=== PATIENT | female | born 1990 | race Caucasian/White ===

== ENCOUNTER → 2022-05-02 13:05 | Observation (INO) ==
[2022-05-02 12:50] LABS: Basophils # 0.1 K/mcL (0.0-0.2); Basophils % 0.6 %; Eosinophils # 0.2 K/mcL (0.0-0.6); Eosinophils % 1.6 %; Hemoglobin 11.6 g/dL (11.5-15.4); Immature Granulocytes % 1.7 % (0-4); Lymphocytes # 2.4 K/mcL (0.6-4.6); Lymphocytes % 17.7 %; Mean Corpuscular HGB Conc 33.1 g/dL (31.6-35.5); Mean Corpuscular Hemoglobin 30.9 pg (28.0-33.3); Mean Corpuscular Volume 93.3 fL (83.0-100.0); Mean Platelet Volume 10.6 fL (9.4-12.4); Monocytes # 0.8 K/mcL (0.0-1.3); Monocytes % 5.6 %; Platelet Count 189 K/mcL (140-400); Red Blood Count 3.75 M/mcL (3.82-4.97); Red Cell Distribution Width 12.7 % (11.5-14.5); Segmented Neutrophils % 72.8 %; White Blood Count 13.7 K/mcL (4.3-11.1)
[2022-05-02 13:04] LABS: INR 0.9; Prothrombin Time 10.1 Seconds (9.4-12.1)
[2022-05-02 13:06] LABS: Activated Partial Thrombo Time 27.3 Seconds (26.0-36.0)
== END | disposition home or self-care (01) ==
LOC: 1NENULAB
PROVIDERS: ADMIT Advanced Practice Midwife; ATTEND Advanced Practice Midwife

== ENCOUNTER → 2022-06-21 14:40 | Observation (INO) ==
[2022-06-21 09:45] LABS: Influenza A PCR Negative (Negative); Influenza B PCR Negative (Negative); Resp. Syncytial Virus PCR Negative (Negative)
[2022-06-21 09:51] LABS: SARS-CoV-2 by PCR (In House) Negative (Negative)
[~2022-06-21 14:40] MED LIST: D5% in Lactated Ringers 1,000 ML IVC SCH; Ondansetron 4 MG/2 ML VIAL IVP ONE; Ondansetron 4 MG/2 ML VIAL ONE; Ringers Solution, Lactated 1,000 ML IVC SCH; Ringers Solution, Lactated 1,000 ML ONE
== END | disposition home or self-care (01) ==
LOC: 1NENULAB
PROVIDERS: ADMIT Obstetrics & Gynecology; ATTEND Obstetrics & Gynecology

== ENCOUNTER 2022-07-02 05:45 | Inpatient (IN) ==
[2022-07-02] MEDS ORDERED: OXYTOCIN/RINGERS LACTATE 10 UNIT/166.6 ML BAG IVC ONE (06:42)
[2022-07-02] MEDS ORDERED: CeFAZolin 2,000 MG/120 ML BAG IVPB ONE ×2 (06:42→08:00)
[2022-07-02] MEDS ORDERED: Famotidine 20 MG/2 ML VIAL IVP ONE ×2 (06:42→07:45)
[2022-07-02] MEDS ORDERED: Oxytocin 30 UNIT/503 ML BAG IVC SCH ×2 (06:45→11:37)
[2022-07-02] MEDS ORDERED: Ringers Solution, Lactated 1,000 ML IVC SCH (06:45)
[2022-07-02] MEDS ORDERED: Ringers Solution, Lactated 2,000 ML ONE (07:01)
[2022-07-02 07:04] LABS: Basophils # 0.1 K/mcL (0.0-0.2); Basophils % 0.7 %; Eosinophils # 0.2 K/mcL (0.0-0.6); Eosinophils % 1.6 %; Immature Granulocytes % 0.8 % (0-4); Lymphocytes # 2.6 K/mcL (0.6-4.6); Lymphocytes % 21.1 %; Mean Corpuscular HGB Conc 33.3 g/dL (31.6-35.5); Mean Corpuscular Hemoglobin 29.4 pg (28.0-33.3); Mean Corpuscular Volume 88.2 fL (83.0-100.0); Mean Platelet Volume 11.6 fL (9.4-12.4); Monocytes # 0.7 K/mcL (0.0-1.3); Monocytes % 5.9 %; Neutrophils # 8.6 K/mcL (1.6-8.9); Platelet Count 233 K/mcL (140-400); Red Blood Count 4.08 M/mcL (3.82-4.97); Red Cell Distribution Width 12.5 % (11.5-14.5); Segmented Neutrophils % 69.9 %; White Blood Count 12.3 K/mcL (4.3-11.1)
[2022-07-02] MEDS: Ringers Solution, Lactated 1,000 ML IVC ONE ×2 (07:33→07:34)
[2022-07-02 08:41] LABS: Amphetamine Screen,Urine Negative ng/mL (Cutoff=1000); Barbiturate Screen,Urine Negative ng/mL (Cutoff=200)
[2022-07-02 08:42] LABS: Benzodiazepines Screen,Urine Negative ng/mL (Cutoff=300); Cannabinoid Screen,Urine Positive ng/mL (Cutoff = 50); Cocaine Screen,Urine Negative ng/mL (Cutoff= 300); Opiate Screen,Urine Negative ng/mL (Cutoff=300); Phencyclidine Screen,Urine Negative ng/mL (Cutoff=25)
[2022-07-02] MEDS ORDERED: Ondansetron 4 MG/2 ML VIAL IVP PRN (11:37)
[2022-07-02] MEDS ORDERED: NON-FORMULARY MEDICATION 1 EACH EACH (Pnv Prenatal Plus Multivit Tab 1 TAB) PO SCH (11:37)
[2022-07-02] MEDS ORDERED: FLUoxetine 20 MG CAPSULE PO SCH (11:37)
[2022-07-02] MEDS ORDERED: Metoclopramide 10 MG/2 ML VIAL IVP PRN (11:37)
[2022-07-02] MEDS: Acetaminophen 325 MG TABLET PO SCH ×3 (12:22→23:49)
[2022-07-02] MEDS: Ibuprofen 600 MG TABLET PO SCH ×3 (12:22→23:49)
[2022-07-02] MEDS: Prenatal Vit/FA 1 EACH TABLET PO SCH (12:22)
[2022-07-02] MEDS: Simethicone 80 MG TAB.CHEW PO PRN (12:23)
[2022-07-02] MEDS: *HR* Buprenorphine HCl 8 MG TAB.SUBL SL SCH ×2 (12:24→19:43)
[2022-07-02] MEDS: CeFAZolin 2,000 MG/120 ML BAG IVPB SCH ×2 (16:46→23:50)
[2022-07-03 05:41] LABS: Basophils # 0.1 K/mcL (0.0-0.2); Basophils % 0.6 %; Eosinophils # 0.1 K/mcL (0.0-0.6); Eosinophils % 0.9 %; Hematocrit 33.6 % (35.3-44.9); Hemoglobin 10.9 g/dL (11.5-15.4); Immature Granulocytes % 0.7 % (0-4); Lymphocytes # 2.3 K/mcL (0.6-4.6); Lymphocytes % 21.1 %; Mean Corpuscular HGB Conc 32.4 g/dL (31.6-35.5); Mean Corpuscular Hemoglobin 28.9 pg (28.0-33.3); Mean Corpuscular Volume 89.1 fL (83.0-100.0); Mean Platelet Volume 11.1 fL (9.4-12.4); Monocytes # 0.5 K/mcL (0.0-1.3); Monocytes % 4.7 %; Neutrophils # 7.7 K/mcL (1.6-8.9); Platelet Count 188 K/mcL (140-400); Red Blood Count 3.77 M/mcL (3.82-4.97); Red Cell Distribution Width 12.8 % (11.5-14.5); White Blood Count 10.7 K/mcL (4.3-11.1)
[2022-07-03] MEDS: *HR* Buprenorphine HCl 8 MG TAB.SUBL SL SCH ×2 (07:58→21:28)
[2022-07-03] MEDS: Acetaminophen 325 MG TABLET PO SCH ×3 (07:59→21:27)
[2022-07-03] MEDS: Prenatal Vit/FA 1 EACH TABLET PO SCH (08:00)
[2022-07-03] MEDS: Ibuprofen 600 MG TABLET PO SCH ×3 (08:00→21:27)
[2022-07-03] MEDS: Simethicone 80 MG TAB.CHEW PO PRN ×3 (08:00→21:27)
[2022-07-03] MEDS: CeFAZolin 2,000 MG/120 ML BAG IVPB SCH (08:53)
[2022-07-03] MEDS ORDERED: Albuterol 2.5 MG/3 ML NEBULIZER ONE (09:47)
[2022-07-03] MEDS: Albuterol 2.5 MG/3 ML NEBULIZER IH SCH ×3 (09:51→15:01)
[2022-07-04] MEDS: Ibuprofen 600 MG TABLET PO SCH ×2 (04:50→10:47)
[2022-07-04] MEDS: Acetaminophen 325 MG TABLET PO SCH ×2 (04:50→10:47)
[2022-07-04 07:17] VITALS: BP 142/80; PULSE 94; TEMP 98.2; O2SAT 99
[2022-07-04] MEDS: Simethicone 80 MG TAB.CHEW PO PRN (08:16)
[2022-07-04] MEDS: Prenatal Vit/FA 1 EACH TABLET PO SCH (08:16)
[2022-07-04] MEDS: *HR* Buprenorphine HCl 8 MG TAB.SUBL SL SCH (08:17)
[2022-07-04] MEDS ORDERED: Flu Vac QV 22-23 (6MOS UP)/PF 0.5 ML SYRINGE IM ONE (10:14)
== END 2022-07-04 13:36 | disposition home or self-care (01) | DRG 540 ==
LOC: 1NENULAB 05:45 → 1NENUOBS 11:22
PROVIDERS: ADMIT Obstetrics & Gynecology; ATTEND Obstetrics & Gynecology